=== PATIENT | male | born 1950 | race Caucasian/White ===

== ENCOUNTER 2016-05-12 18:37 | Inpatient (IN) | payer OTHER, SELFPAY ==
[2016-05-12 15:06] LABS: BASO % 0.1 % (0-2); EOS % 0.4 % (0-7); EOSINOPHIL ABSOLUTE COUNT 0.1 tho/cmm (0.0-0.7); HCT-HEMATOCRIT 48.9 % (36.0-53.5); HGB-HEMOGLOBIN 18.2 gm/dl (13.5-17.0); IMMATURE GRANULOCYTES ABSOLUTE 0.03 tho/cmm (0-0.03); IMMATURE GRANULOCYTES PERCENT 0.2 % (0-0.3); LYMPH % 7.9 % (20-45); LYMPH ABSOLUTE COUNT 1.3 tho/cmm (0.8-4.5); MCH (MEAN CORPUSCULAR HGB) 31.4 pg (28.0-32.0); MCHC MEAN CORPUSCULAR HGB CONC 37.2 % (32.0-36.0); MCV (MEAN CELL VOLUME) 84.5 fl (82.0-96.0); MEAN PLATELET VOLUME 9.9 cmc (9.4-12.4); MONO % 4.5 % (0-12); MONOCYTE ABSOLUTE COUNT 0.7 tho/cmm (0.0-1.2); NEUTROPHIL ABSOLUTE COUNT 14.1 tho/cmm (1.6-8.0); NEUTROPHIL-AUTOMATED 14.1 tho/cmm (1.6-8.0); NEUTROPHILS % 86.9 % (40-80); PLATELET COUNT 189 tho/cmm (150-450); RED BLOOD COUNT 5.79 mil/cmm (4.40-5.70); RED CELL DISTRIBUTION WIDTH 13.1 % (12.4-16.4); WHITE BLOOD COUNT 16.2 tho/cmm (4.0-10.0)
[2016-05-12 15:31] LABS: ALBUMIN 3.7 g/dl (3.5-5.0); ALKALINE PHOSPHATASE 104 U/L (33-138); ALT/SGPT 206 U/L (12-78); ANION GAP 14 mmol/L (0-20); AST/SGOT 193 U/L (10-40); BLOOD UREA NITROGEN 20 mg/dl (6-24); C-REACTIVE PROTEIN 0.4 mg/dl (0-0.9); CALCIUM 8.8 mg/dl (8.5-10.5); CARBON DIOXIDE-VENOUS 25 mmol/L (22-32); CHLORIDE 104 mmol/l (96-110); CREATININE 0.98 mg/dl (0.60-1.30); GLUCOSE 325 mg/dL (70-110); POTASSIUM 4.5 mmol/L (3.7-5.1); SODIUM 138 mmol/L (135-145); eGFR VALUE FOR BLACK >90 mL/Min
[2016-05-12 15:32] LABS: LIPASE 15153 U/L (73-393)
[~2016-05-12 18:37] MED LIST: ASPIRIN325 M3 PO; BYDUREON P2 MG/0.65 SC; KRILL OIL 1,001 EAC2 PO; LUTEIN20 M3 PO; MOBIC7.5 M2 PO; MULTIVITAMINS1 EAC7 PO; ORPHENADRINE C100 M1 PO; PRINIVIL20 M1 PO; PROPRANOLOL HC160 M1 PO; SAW PALMETTO450 M1 PO; TRIAMCINOLONE A15 G2 TP; ZANAFLEX4 M2 PO; [UNRECOGNIZED DRUG - OTHER]
[2016-05-13 07:29] LABS: BASO % 0.1 % (0-2); HCT-HEMATOCRIT 49.9 % (36.0-53.5); HGB-HEMOGLOBIN 18.2 gm/dl (13.5-17.0); IMMATURE GRANULOCYTES ABSOLUTE 0.07 tho/cmm (0-0.03); IMMATURE GRANULOCYTES PERCENT 0.4 % (0-0.3); LYMPH % 8.7 % (20-45); LYMPH ABSOLUTE COUNT 1.5 tho/cmm (0.8-4.5); MCH (MEAN CORPUSCULAR HGB) 31.1 pg (28.0-32.0); MCHC MEAN CORPUSCULAR HGB CONC 36.5 % (32.0-36.0); MCV (MEAN CELL VOLUME) 85.2 fl (82.0-96.0); MEAN PLATELET VOLUME 9.5 cmc (9.4-12.4); MONO % 5.1 % (0-12); MONOCYTE ABSOLUTE COUNT 0.9 tho/cmm (0.0-1.2); NEUTROPHIL ABSOLUTE COUNT 14.8 tho/cmm (1.6-8.0); NEUTROPHIL-AUTOMATED 14.8 tho/cmm (1.6-8.0); NEUTROPHILS % 85.7 % (40-80); PLATELET COUNT 146 tho/cmm (150-450); RED BLOOD COUNT 5.86 mil/cmm (4.40-5.70); RED CELL DISTRIBUTION WIDTH 13.4 % (12.4-16.4); WHITE BLOOD COUNT 17.3 tho/cmm (4.0-10.0)
[2016-05-13 07:48] LABS: ALB/GLOB RATIO 0.8 (0.8-2.0); ALT/SGPT 116 U/L (12-78); BILIRUBIN,TOTAL 3.5 mg/dl (0.0-1.5); BLOOD UREA NITROGEN 25 mg/dl (6-24); CARBON DIOXIDE-VENOUS 22 mmol/L (22-32); CHLORIDE 104 mmol/l (96-110); CHOLESTEROL 97 mg/dl (120-200); CREATININE 0.88 mg/dl (0.60-1.30); GLUCOSE 327 mg/dL (70-110); HDL CHOLESTEROL 18 mg/dl (40-60); SODIUM 136 mmol/L (135-145); eGFR VALUE FOR BLACK >90 mL/Min
[2016-05-13 07:50] LABS: ANION GAP 14 mmol/L (0-20)
[2016-05-13 07:54] LABS: LDL CHOLESTEROL 34 mg/dl (0-99); LIPASE 6643 U/L (73-393); TRIGLYCERIDES 227 mg/dl (<149); VLDL 45 mg/dl (0-30)
[2016-05-13 07:56] LABS: AMYLASE 635 U/L (20-90); AST/SGOT 68 U/L (10-40); POTASSIUM 4.4 mmol/L (3.7-5.1)
[2016-05-13 11:45] LABS: ALKALINE PHOSPHATASE 82 U/L (33-138)
[2016-05-14 06:32] LABS: ALB/GLOB RATIO 0.7 (0.8-2.0); ALBUMIN 2.5 g/dl (3.5-5.0); ALKALINE PHOSPHATASE 64 U/L (33-138); ALT/SGPT 64 U/L (12-78); ANION GAP 10 mmol/L (0-20); AST/SGOT 52 U/L (10-40); BILIRUBIN,TOTAL 3.4 mg/dl (0.0-1.5); BLOOD UREA NITROGEN 28 mg/dl (6-24); CALCIUM 6.9 mg/dl (8.5-10.5); CARBON DIOXIDE-VENOUS 29 mmol/L (22-32); CHLORIDE 102 mmol/l (96-110); CREATININE 0.95 mg/dl (0.60-1.30); GLUCOSE 264 mg/dL (70-110); POTASSIUM 4.4 mmol/L (3.7-5.1); SODIUM 137 mmol/L (135-145); eGFR VALUE FOR BLACK >90 mL/Min
[2016-05-14 06:36] LABS: BASO % 0.1 % (0-2); EOS % 0.1 % (0-7); HGB-HEMOGLOBIN 15.7 gm/dl (13.5-17.0); IMMATURE GRANULOCYTES ABSOLUTE 0.05 tho/cmm (0-0.03); IMMATURE GRANULOCYTES PERCENT 0.3 % (0-0.3); LYMPH ABSOLUTE COUNT 1.5 tho/cmm (0.8-4.5); MCHC MEAN CORPUSCULAR HGB CONC 35.7 % (32.0-36.0); MEAN PLATELET VOLUME 9.8 cmc (9.4-12.4); MONO % 5.3 % (0-12); MONOCYTE ABSOLUTE COUNT 0.9 tho/cmm (0.0-1.2); NEUTROPHIL ABSOLUTE COUNT 13.7 tho/cmm (1.6-8.0); NEUTROPHIL-AUTOMATED 13.7 tho/cmm (1.6-8.0); NEUTROPHILS % 85.2 % (40-80); PLATELET COUNT 113 tho/cmm (150-450); RED BLOOD COUNT 5.06 mil/cmm (4.40-5.70); RED CELL DISTRIBUTION WIDTH 13.8 % (12.4-16.4); WHITE BLOOD COUNT 16.1 tho/cmm (4.0-10.0)
[2016-05-14 07:00] LABS: LIPASE 2680 U/L (73-393)
--- NOTE | 2016-05-14 20:23 | NUR ---
VIRTUAL CARE NOTE: PT. IN THE CHAIR, UNABLE TO VIEW THIS RN, STATES JUST HAD PILL THAT HADN'T QUITE KICKED IN YET. DENIES FURTHER QUESTIONS REGARDING HIS CARE AT THIS TIME. INSTRUCTED TO CALL FOR FUTURE NEEDS. STATES VERBAL AGREEMENT.
[2016-05-15 06:13] LABS: BASO % 0.1 % (0-2); EOS % 0.1 % (0-7); HCT-HEMATOCRIT 38.2 % (36.0-53.5); HGB-HEMOGLOBIN 13.9 gm/dl (13.5-17.0); IMMATURE GRANULOCYTES PERCENT 0.8 % (0-0.3); LYMPH % 9.6 % (20-45); LYMPH ABSOLUTE COUNT 1.2 tho/cmm (0.8-4.5); MCH (MEAN CORPUSCULAR HGB) 31.2 pg (28.0-32.0); MCHC MEAN CORPUSCULAR HGB CONC 36.4 % (32.0-36.0); MCV (MEAN CELL VOLUME) 85.8 fl (82.0-96.0); MEAN PLATELET VOLUME 10.1 cmc (9.4-12.4); MONO % 6.4 % (0-12); MONOCYTE ABSOLUTE COUNT 0.8 tho/cmm (0.0-1.2); NEUTROPHIL ABSOLUTE COUNT 10.8 tho/cmm (1.6-8.0); NEUTROPHIL-AUTOMATED 10.8 tho/cmm (1.6-8.0); PLATELET COUNT 83 tho/cmm (150-450); RED BLOOD COUNT 4.45 mil/cmm (4.40-5.70); RED CELL DISTRIBUTION WIDTH 13.5 % (12.4-16.4)
[2016-05-15 06:30] LABS: ALB/GLOB RATIO 0.8 (0.8-2.0); ALBUMIN 2.2 g/dl (3.5-5.0); ALKALINE PHOSPHATASE 59 U/L (33-138); ALT/SGPT 41 U/L (12-78); ANION GAP 13 mmol/L (0-20); BILIRUBIN,TOTAL 2.9 mg/dl (0.0-1.5); BLOOD UREA NITROGEN 19 mg/dl (6-24); CARBON DIOXIDE-VENOUS 23 mmol/L (22-32); CHLORIDE 103 mmol/l (96-110); CREATININE 0.75 mg/dl (0.60-1.30); GLUCOSE 231 mg/dL (70-110); SODIUM 135 mmol/L (135-145); eGFR VALUE FOR BLACK >90 mL/Min
[2016-05-15 06:31] LABS: AST/SGOT 49 U/L (10-40); POTASSIUM 3.9 mmol/L (3.7-5.1)
[2016-05-15 06:32] LABS: CALCIUM 6.1 mg/dl (8.5-10.5)
[2016-05-15 08:40] LABS: URINE LEUKOCYTE ESTERASE NEGATIVE (NEG); URINE PROTEIN MODERATE (NEG)
[2016-05-15 08:41] LABS: URINE APPEARANCE CLEAR; URINE BILIRUBIN NEGATIVE (NEG); URINE BLOOD MODERATE (NEG); URINE COLOR DARK YELLOW; URINE GLUCOSE (UA) MODERATE (NEG); URINE KETONE MODERATE (NEG); URINE NITRITE NEGATIVE (NEG)
[2016-05-15 08:58] LABS: URINE EPITHELIAL CELLS 0-2 /[HPF] (0-10); URINE RBC 0-1 /[HPF] (0-5); URINE WBC 0-1 /[HPF] (0-5)
[2016-05-15] MEDS ORDERED: STOP THE FOLLOWING (11:18)
[2016-05-15] MEDS ORDERED: LOPRESSOR50 M1 PO (11:20)
[2016-06-01] MEDS ORDERED: INDERAL PO (16:19)
[2016-06-01] MEDS ORDERED: HUMALOG100 UNIT/2 SC (16:19)
[2016-08-17] MEDS ORDERED: HYDROCODON-ACE1 EA16 PO (13:07)
[2016-08-17] MEDS ORDERED: ASPIRIN325 M3 PO (13:08)
[2016-08-18] MEDS ORDERED: CIPRO (12:10)
[2016-10-25] MEDS ORDERED: NORCO 5-325 TA1 EACH PO (10:56)
[2016-10-25] MEDS ORDERED: PRINIVIL20 M1 PO (10:56)
[2016-10-25] MEDS ORDERED: LUTEIN 15 MG S1 EACH PO (13:40)
[2016-10-25] MEDS ORDERED: SAW PALMETTO C1 EACH PO (13:41)
[2016-10-25] MEDS ORDERED: MEGARED OMEGA-1 EAC1 PO (13:51)
[2016-10-25] MEDS ORDERED: THERAPEUTIC-M1 EAC3 PO (14:17)
[2016-10-25] MEDS ORDERED: PANCREATIN PO (14:21)
[2016-10-26] MEDS ORDERED: NORVASC5 M2 PO (14:49)
== END 2016-05-15 14:00 | DRG 439 ==
LOC: EDMED 18:37 → EMR2 18:40 → 5WD 23:54
PROVIDERS: Emergency Medicine; Family Medicine; Internal Medicine Gastroenterology; ADMIT Family Medicine
DX: K85.90 Acute pancreatitis without necrosis or infection, unspecified (principal); Z68.42 Body mass index [BMI] 45.0-49.9, adult; D69.6 Thrombocytopenia, unspecified; E66.01 Morbid (severe) obesity due to excess calories; G47.33 Obstructive sleep apnea (adult) (pediatric); E11.9 Type 2 diabetes mellitus without complications; I10 Essential (primary) hypertension; E78.5 Hyperlipidemia, unspecified; R60.9 Edema, unspecified; K57.90 Diverticulosis of intestine, part unspecified, without perforation or abscess without bleeding; I16.0 Hypertensive urgency; R94.5 Abnormal results of liver function studies; I87.2 Venous insufficiency (chronic) (peripheral); Z79.82 Long term (current) use of aspirin
CPT/HCPCS: C9113; J0360; J1170; J1335; J1650; J1815; J2270; J2405; J7030; Q9967

== ENCOUNTER 2016-05-17 14:51 | Emergency (ER) | payer OTHER, SELFPAY ==
[~2016-05-17 14:51] MED LIST changes: +LOPRESSOR50 M1 PO; +STOP THE FOLLOWING
[2016-05-17 16:33] LABS: BASO % 0.2 % (0-2); EOS % 0.2 % (0-7); HCT-HEMATOCRIT 34.3 % (36.0-53.5); HGB-HEMOGLOBIN 12.4 gm/dl (13.5-17.0); IMMATURE GRANULOCYTES PERCENT 3.4 % (0-0.3); LYMPH % 6.3 % (20-45); LYMPH ABSOLUTE COUNT 0.8 tho/cmm (0.8-4.5); MCH (MEAN CORPUSCULAR HGB) 30.8 pg (28.0-32.0); MCHC MEAN CORPUSCULAR HGB CONC 36.2 % (32.0-36.0); MCV (MEAN CELL VOLUME) 85.1 fl (82.0-96.0); MEAN PLATELET VOLUME 9.6 cmc (9.4-12.4); MONOCYTE ABSOLUTE COUNT 0.7 tho/cmm (0.0-1.2); NEUTROPHILS % 83.9 % (40-80); PLATELET COUNT 113 tho/cmm (150-450); RED BLOOD COUNT 4.03 mil/cmm (4.40-5.70); RED CELL DISTRIBUTION WIDTH 12.8 % (12.4-16.4); WHITE BLOOD COUNT 11.9 tho/cmm (4.0-10.0)
[2016-05-17 16:50] LABS: ALB/GLOB RATIO 0.5 (0.8-2.0); ALBUMIN 1.9 g/dl (3.5-5.0); ALKALINE PHOSPHATASE 92 U/L (33-138); ALT/SGPT 27 U/L (12-78); ANION GAP 12 mmol/L (0-20); AST/SGOT 26 U/L (10-40); BILIRUBIN,TOTAL 1.8 mg/dl (0.0-1.5); BLOOD UREA NITROGEN 11 mg/dl (6-24); CALCIUM 7.5 mg/dl (8.5-10.5); CARBON DIOXIDE-VENOUS 28 mmol/L (22-32); CHLORIDE 96 mmol/l (96-110); CREATININE 0.74 mg/dl (0.60-1.30); GLUCOSE 289 mg/dL (70-110); LIPASE 83 U/L (73-393); SODIUM 133 mmol/L (135-145); eGFR VALUE FOR BLACK >90 mL/Min
[2016-05-17 17:30] LABS: URINE LEUKOCYTE ESTERASE NEGATIVE (NEG); URINE PROTEIN MODERATE (NEG)
[2016-05-17 17:33] LABS: URINE APPEARANCE HAZY; URINE BILIRUBIN NEGATIVE (NEG); URINE BLOOD MODERATE (NEG); URINE COLOR DARK YELLOW; URINE GLUCOSE (UA) LARGE (NEG); URINE KETONE LARGE (NEG); URINE NITRITE NEGATIVE (NEG)
[2016-05-17 18:00] LABS: URINE EPITHELIAL CELLS 0-2 /[HPF] (0-10)
[2016-05-17] MEDS ORDERED: NORCO 5-325 TA1 EACH PO (18:15)
[2016-06-01] MEDS ORDERED: INDERAL PO (16:19)
[2016-06-01] MEDS ORDERED: HUMALOG100 UNIT/2 SC (16:19)
[2016-08-17] MEDS ORDERED: HYDROCODON-ACE1 EA16 PO (13:07)
[2016-08-17] MEDS ORDERED: ASPIRIN325 M3 PO (13:08)
[2016-08-18] MEDS ORDERED: CIPRO (12:10)
[2016-10-25] MEDS ORDERED: PRINIVIL20 M1 PO (10:56)
[2016-10-25] MEDS ORDERED: NORCO 5-325 TA1 EACH PO (10:56)
[2016-10-25] MEDS ORDERED: LUTEIN 15 MG S1 EACH PO (13:40)
[2016-10-25] MEDS ORDERED: SAW PALMETTO C1 EACH PO (13:41)
[2016-10-25] MEDS ORDERED: MEGARED OMEGA-1 EAC1 PO (13:51)
[2016-10-25] MEDS ORDERED: THERAPEUTIC-M1 EAC3 PO (14:17)
[2016-10-25] MEDS ORDERED: PANCREATIN PO (14:21)
[2016-10-26] MEDS ORDERED: NORVASC5 M2 PO (14:49)
== END 2016-05-17 18:27 ==
LOC: EDMED 14:51
PROVIDERS: Emergency Medicine
PROC: 4A0D7BZ Measurement of Urinary Pressure, Via Natural or Artificial Opening (ICD-10-PCS; principal; 2016-05-17)
PROC: 05HF33Z Insertion of Infusion Device into Left Cephalic Vein, Percutaneous Approach (ICD-10-PCS; 2016-05-17)
DX: E86.0 Dehydration (principal); E87.6 Hypokalemia; E11.65 Type 2 diabetes mellitus with hyperglycemia; K85.90 Acute pancreatitis without necrosis or infection, unspecified; I10 Essential (primary) hypertension
CPT/HCPCS: C1751; J1170; J2405; J7030